=== PATIENT | female | born 1950 | race Caucasian/White ===

== ENCOUNTER 2018-12-27 18:13 | Inpatient (IN) | payer MEDICARE, OTHER ==
[~2018-12-27] VITALS: Ht 162.6 cm; Wt 55.0 kg
--- NOTE | 2018-12-27 18:39 | NUR ---
UPON ARRIVAL TO ER, EKG OBTAINED AND NOTED TO BE SECOND DEGREE HEART BLOCK. NO DIAPHORESIS, CP OR NAUSEA. PT JUST NOT FEELING RIGHT SINCE YESTERDAY. PT IS A TRANSFER FROM [facility]
[2018-12-27 19:15] LABS: BASOPHILS # (AUTO) 0.04 x10^3/uL (0-0.1); BASOPHILS % (AUTO) 1 % (0-1); EOSINOPHILS # (AUTO) 0.04 x10^3/uL (0-0.4); EOSINOPHILS % (AUTO) 1 % (1-7); LYMPHOCYTES # (AUTO) 1.07 x10^3/uL (1-3.4); LYMPHOCYTES % (AUTO) 21 % (22-44); MD NO; MEAN CORPUSCULAR HEMOGLOBIN 32.7 pg (27.0-34.8); MEAN CORPUSCULAR HGB CONC 33.3 g/dL (32.4-35.8); MONOCYTES # (AUTO) 0.43 x10^3/uL (0.2-0.8); MONOCYTES % (AUTO) 8 % (2-9); NEUTROPHILS # (AUTO) 3.54 x10^3/uL (1.8-6.8); NEUTROPHILS % (AUTO) 69 % (42-75); PLATELET COUNT 303 x10^3/uL (130-400); RED BLOOD COUNT 4.73 x10^6/uL (3.82-5.3); RED CELL DISTRIBUTION WIDTH 13.3 % (9.6-15.2)
[2018-12-27 19:23] LABS: ALBUMIN 4.4 g/dL (3.4-5.0); ANION GAP 7 mmol/L (5-15); CALCIUM 9.4 mg/dL (8.5-10.1); CHLORIDE 103 mmol/L (98-107); CREATININE 0.74 mg/dL (0.55-1.02)
[2018-12-27 19:27] LABS: TROPONIN I < 0.015 ng/mL (0.000-0.045)
--- NOTE | 2018-12-27 19:37 | NUR ---
CONTINUE TO MONITOR PT. PT IN NO DISTRESS.
--- NOTE | 2018-12-27 20:03 | NUR ---
HOSPITALIST AT BEDSIDE
--- NOTE | 2018-12-27 20:14 | NUR ---
PROVIDED SANDWICH. VISTORS AT SIDE. CONTINUE TO MONITOR
--- NOTE | 2018-12-27 20:23 | NUR ---
REPORT TO YOANNA LIU. PT TO BE TRANSPORTED TO CARDIAC TELE
[2018-12-27] MEDS ORDERED: BUTALB/APAP/CAFFEINE 50MG/325MG/40MG PO PRN (21:00)
[2018-12-27] MEDS ORDERED: ENALAPRILAT 1.25 MG/ML, 2ML IVPush PRN (21:00)
[2018-12-27] MEDS ORDERED: hydrALAzine 20 MG/ML, 1ML IVPush PRN (21:00)
[2018-12-27 21:18] VITALS: BP 156/46
[2018-12-27] MEDS: ACETAMINOPHEN 325 MG TABLET PO PRN (21:23)
[2018-12-27] MEDS: LACTATED RINGERS 1,000 ML IV SCH (22:29)
[2018-12-28 01:39] VITALS: BP 158/58
[2018-12-28 05:25] LABS: ANION GAP 5 mmol/L (5-15); CALCIUM 9.1 mg/dL (8.5-10.1); CHLORIDE 105 mmol/L (98-107); CHOLESTEROL, TOTAL 220 mg/dL (140-239); CREATININE 0.69 mg/dL (0.55-1.02); TRIGLYCERIDES 103 mg/dL (50-200); VLDL CHOLESTEROL 21 mg/dL (0-25)
[2018-12-28 05:28] LABS: CHOL/HDL RATIO 2.4; HDL CHOL % 42 % (28-40); HDL CHOLESTEROL (DIRECT) 92 mg/dL (40-60); LDL CHOLESTEROL,CALCULATED 107 mg/dL (54-169); LDL/HDL RATIO 1.2 (0.5-3.0)
[2018-12-28 05:52] VITALS: BP 92/59
[2018-12-28 05:54] VITALS: BP 93/64
[2018-12-28 06:50] VITALS: BP 166/66
[2018-12-28] MEDS ORDERED: CEFAZOLIN PMX 1GM/50ML 50 ML IVPB ONE (08:00)
[2018-12-28] MEDS: SODIUM CHLORIDE 0.9% 1,000 ML IV SCH ×2 (08:00→17:03)
[2018-12-28] MEDS: SENNA/DOCUSATE TABLET PO SCH (09:00)
[2018-12-28 12:21] VITALS: BP 156/67
[2018-12-28] MEDS: LACTATED RINGERS 1,000 ML IV SCH (13:15)
[2018-12-28] MEDS ORDERED: FENTANYL PF 100 MCG/2ML ONE (14:34)
[2018-12-28] MEDS ORDERED: LIDOCAINE 1%, 20ML ONE (14:34)
[2018-12-28] MEDS ORDERED: MIDAZOLAM 1 MG/ML, 5ML ONE (14:34)
[2018-12-28] MEDS ORDERED: CEFAZOLIN 1,000 MG ONE (14:34)
[2018-12-28] MEDS ORDERED: CEFAZOLIN PMX 1GM/50ML 50 ML ONE (14:34)
[2018-12-28] MEDS ORDERED: HOLD MEDICATION MC PRN (16:30)
[2018-12-28] MEDS: HYDROcodone/APAP 5/325 TABLET PO PRN ×2 (16:49→20:59)
[2018-12-28 19:10] VITALS: BP 142/79
[2018-12-28] MEDS: SODIUM CHLORIDE FLUSH 10ML SYR IVF SCH (21:00)
[2018-12-28] MEDS: CEFAZOLIN PMX 1GM/50ML 50 ML IVPB SCH (23:49)
[2018-12-29] MEDS: HYDROcodone/APAP 5/325 TABLET PO PRN (00:56)
[2018-12-29 02:11] VITALS: BP 166/73
[2018-12-29] MEDS: LACTATED RINGERS 1,000 ML IV SCH ×2 (02:35→15:55)
[2018-12-29 07:05] VITALS: BP 173/80
[2018-12-29] MEDS: SODIUM CHLORIDE 0.9% 1,000 ML IV SCH ×3 (08:00→16:00)
[2018-12-29] MEDS: CEFAZOLIN PMX 1GM/50ML 50 ML IVPB SCH (08:03)
[2018-12-29] MEDS: ONDANSETRON 2MG/ML, 2ML IVPush PRN ×2 (08:03→15:14)
[2018-12-29] MEDS ORDERED: LISINOPRIL 10 MG TABLET PO SCH (09:00)
[2018-12-29] MEDS: SODIUM CHLORIDE FLUSH 10ML SYR IVF SCH (09:00)
[2018-12-29] MEDS: SENNA/DOCUSATE TABLET PO SCH (09:00)
[2018-12-29] MEDS: ACETAMINOPHEN 325 MG TABLET PO PRN (10:13)
[2018-12-29 13:25] VITALS: BP 146/69
[2018-12-29] MEDS ORDERED: ONDA4TAB7 PO (15:35)
[2018-12-29] MEDS ORDERED: LISI-167 PO (15:35)
== END 2018-12-29 19:24 | disposition home or self-care (01) | DRG 242 ==
LOC: ED 19:21 → EDIP 19:26 → ED 19:38 → 5SO 20:42
PROVIDERS: ADMIT Family Medicine; ATTEND Family Medicine
PROC: 02H63JZ Insertion of Pacemaker Lead into Right Atrium, Percutaneous Approach (ICD-10-PCS; principal; 2018-12-28)
PROC: 0JH606Z Insertion of Pacemaker, Dual Chamber into Chest Subcutaneous Tissue and Fascia, Open Approach (ICD-10-PCS; 2018-12-28)
PROC: 02HK3JZ Insertion of Pacemaker Lead into Right Ventricle, Percutaneous Approach (ICD-10-PCS; 2018-12-28)
PROC: B5161ZA Fluoroscopy of Right Subclavian Vein using Low Osmolar Contrast, Guidance (ICD-10-PCS; 2018-12-28)
DX: I44.1 Atrioventricular block, second degree (principal); I50.33 Acute on chronic diastolic (congestive) heart failure; I45.2 Bifascicular block; I10 Essential (primary) hypertension; W22.09XA Striking against other stationary object, initial encounter; E78.5 Hyperlipidemia, unspecified; F41.9 Anxiety disorder, unspecified; S00.03XA Contusion of scalp, initial encounter; I08.0 Rheumatic disorders of both mitral and aortic valves; R11.0 Nausea; S06.0X0A Concussion without loss of consciousness, initial encounter; T40.605A Adverse effect of unspecified narcotics, initial encounter; Z87.891 Personal history of nicotine dependence; Y93.89 Activity, other specified; Y92.89 Other specified places as the place of occurrence of the external cause; Y99.8 Other external cause status; Z82.49 Family history of ischemic heart disease and other diseases of the circulatory system; I11.0 Hypertensive heart disease with heart failure
CPT/HCPCS: 0399T; 33208; 36415; 71045; 80048; 80061; 82040; 83735; 84100; 84443; 84484; 85025; 93005; 93306; 99156; 99157; C1779; C1785; C1892; G0378; J0690; J2250; J2405; J3010; J7030; J7120; Q9967